=== PATIENT | female | born 1985 | race African-American/Black ===

== ENCOUNTER 2017-04-14 20:32 | Emergency (ER) | payer SELFPAY ==
[~2017-04-14] VITALS: Ht 175.3 cm; Wt 111.1 kg
[~2017-04-14 20:32] MED LIST: CYCLOBENZAPRINE10 MG ORAL; IBUPROFEN600 MG ORAL; LEVAQUIN500 MG ORAL; NKM
[2017-04-14 20:49] VITALS: BP 132/81
[2017-04-14] MEDS ORDERED: IBUPROFEN600 MG ORAL (21:21)
--- NOTE | 2017-04-14 21:21 | Emergency Room Report ---
History of Present Illness General Chief Complaint: Pain Source: Patient Present Illness HPI A 31-year-old female with no cerebrovascular issue. She presents with left foot pain. Onset for a week now. No trauma. Worse with standing or walking. No fever chills but no nausea no vomiting. Now felt some numbness. Denies any other complaint. Pain is mild. Allergies: Coded Allergies: No Known Allergies (Unverified , 12/14/14) Patient History Past Medical History: see triage record, old chart reviewed Past Surgical History: none Pertinent Family History: none Social History: Denies: smoking Last Menstrual Period: 04/11/17 Now: No Immunizations: other Reviewed Nursing Documentation: PMH: Agreed, PSxH: Agreed Nursing Documentation-PMH Past Medical History: No Stated History Review of Systems Eye: Denies: eye pain, blurred vision ENT: Denies: ear pain, nose congestion, throat swelling Respiratory: Denies: cough, shortness of breath Cardiovascular: Denies: chest pain, palpitations Gastrointestinal: Denies: abdominal pain, diarrhea, nausea, vomiting Musculoskeletal: Reports: joint pain, Denies: back pain Skin: Denies: rash Neurological: Denies: headache, numbness Endocrine: Denies: increased thirst, increased urine Hematologic/Lymphatic: Denies: easy bruising All Other Systems: negative except mentioned in HPI Physical Exam Vital Signs Date Time Temp Pulse Resp B/P (MAP) Pulse Ox O2 Delivery O2 Flow Rate FiO2 04/14/17 20:41 98.1 88 17 132/81 98 Room Air vitals normal Sp02 EP Interpretation: reviewed, normal General Appearance: well appearing, no apparent distress, alert Head: normocephalic, atraumatic Eyes: bilateral eye PERRL, bilateral eye EOMI ENT: hearing grossly normal, normal pharynx Neck: full range of motion, supple, no meningismus Respiratory: chest non-tender, lungs clear, normal breath sounds Cardiovascular #1: regular rate, rhythm, no murmur Gastrointestinal: normal bowel sounds, non tender, no mass, no organomegaly, no bruit, non-distended Musculoskeletal: back normal, gait/station normal, normal range of motion, other - Left foot: Tenderness on the dorsum of the foot. Mild edema. No redness. No fever. Full range of motion of the ankle. Dorsalis pedis pulses 2 +. Sensation normal. She is very flat-footed. Psychiatric: mood/affect normal Skin: warm/dry Medical Decision Making Diagnostic Impression: Primary Impression: Sprain of foot, left Qualified Codes: S93.602A - Unspecified sprain of left foot, initial encounter ER Course Patient presents with left foot pain. Probably a sprain because she still flat- footed. No fracture or dislocation. No evidence of infection. We'll discharge home. Other X-Ray Diagnostic Results Other X-Ray Diagnostic Results : X-Ray ordered: X-rays left foot # of Views/Limited Vs Complete: 3 View Indication: Pain EP Interpretation: Yes Interpretation: no dislocation, no soft tissue swelling, no fractures Impression: No acute disease Interpreting ER Provider: Electronically signed by Parviz Guerrero MD Last Vital Signs Date Time Temp Pulse Resp B/P (MAP) Pulse Ox O2 Delivery O2 Flow Rate FiO2 04/14/17 20:49 98.1 88 17 132/81 98 Room Air Status: improved Disposition: HOME, SELF-CARE Condition: Stable Scripts Ibuprofen* (MOTRIN*) 600 Mg Tablet 600 MG ORAL THREE TIMES A DAY, #30 TAB 0 Refills Prov: PARVIZ GUERRERO M.D. 04/14/17 Additional Instructions: Followup with your DrPaddy 7 days. You may benefit from referral to see a knot cutter for orthotic shoes. Return if symptom worsen. PARVIZ GUERRERO M.D. Apr 14, 2017 21:21
[2017-04-14 21:44] VITALS: BP 132/81
--- NOTE | 2017-04-15 08:46 | Diagnostic Imaging Report ---
Indication: Pain Comparison: None Findings: 3 views of the left foot were obtained. No acute fractures, malalignment, erosions or periostitis are identified. Bone mineralization is within normal limits. Nonspecific soft tissue swelling is present. Impression: No acute findings. Soft tissue swelling
== END 2017-04-14 21:45 | disposition home or self-care (01) ==
LOC: EMR 21:06
DX: S93.602A Unspecified sprain of left foot, initial encounter (principal); X58.XXXA Exposure to other specified factors, initial encounter; Y93.9 Activity, unspecified; Y92.9 Unspecified place or not applicable
CPT/HCPCS: 99283

== ENCOUNTER 2017-12-16 00:47 | Emergency (ER) | payer SELFPAY ==
[~2017-12-16] VITALS: Ht 175.3 cm; Wt 109.8 kg
[2017-12-16] MEDS ORDERED: PRILOSEC OTC20 MG ORAL (00:55)
[2017-12-16] MEDS ORDERED: Lidocaine 2% Visc 15ml soln ORAL ONE (01:00)
--- NOTE | 2017-12-16 01:04 | Emergency Room Report ---
History of Present Illness General Chief Complaint: Chest Pain Source: Patient Present Illness HPI Patient 32-year-old female presented after increased chest discomfort. Patient reports having onset of pain after drinking alcohol. Patient reports having some discomfort. She denies any change with exertion. She denies family history of cardiac disease. She does not take oral contraceptives. She denies being . She denies any leg pain or swelling.She denies cough or shortness of breath. Allergies: Coded Allergies: No Known Allergies (Unverified , 12/14/14) Patient History Past Medical History: see triage record Last Menstrual Period: november 22 2017 Now: No Reviewed Nursing Documentation: PMH: Agreed; PSxH: Agreed Nursing Documentation-PMH Past Medical History: No Stated History Review of Systems All Other Systems: negative except mentioned in HPI Physical Exam Vital Signs Date Time Temp Pulse Resp B/P (MAP) Pulse Ox O2 Delivery O2 Flow Rate FiO2 12/16/17 00:57 97.9 72 23 117/60 97.9 Sp02 EP Interpretation: reviewed, normal General Appearance: normal inspection, well appearing, no apparent distress, alert, GCS 15, obese Head: atraumatic ENT: normal ENT inspection, hearing grossly normal, normal voice Neck: normal inspection, full range of motion, supple, no bony tend Respiratory: normal inspection, lungs clear, normal breath sounds, no respiratory distress, no retraction, no wheezing Cardiovascular #1: regular rate, rhythm, no edema Gastrointestinal: normal inspection, normal bowel sounds, non tender, soft, no guarding, no hernia, other - mild epigastric tenderness Genitourinary: no CVA tenderness Musculoskeletal: normal inspection, back normal, normal range of motion Neurologic: normal inspection, alert, oriented x3, responsive, speech normal Psychiatric: normal inspection, judgement/insight normal, mood/affect normal Skin: normal inspection, normal color, no rash Medical Decision Making Diagnostic Impression: Primary Impression: Gastritis ER Course Patient presented for abdominal pain. Differential diagnoses included ischemic bowel, appendicitis, perforated viscus, abdominal aortic aneurysm, inferior myocardial infarction, viral gastroenteritis. Patient has a benign exam and does not appear to require any further imaging or laboratory testing at this time. EKG interpreted by me showed normal sinus rhythm with a rate of [address] or T wave changes. Patient was noted to have a benign exam and minimal tenderness to the epigastric area. The patient had not been having any hematemesis or bleeding episodes. The patient was given a GI cocktail with improvement. The patient is advised to follow up with primary care doctor in 1 -2 days. Patient is advised to return if any worsening condition or if any changes in status that are concerning. This report is dictated with [employer] hatchery laborer software which may occasionally lead to discrepancies related to use of this software. Chest X-Ray Diagnostic Results Chest X-Ray Diagnostic Results : Chest X-Ray Ordered: Yes # of Views/Limited/Complete: 1 View Indication: Chest Pain EP Interpretation: Yes Impression: No acute disease Electronically Signed by: Electronically signed by Dr. Antione Cox M.D. Last Vital Signs Date Time Temp Pulse Resp B/P (MAP) Pulse Ox O2 Delivery O2 Flow Rate FiO2 12/16/17 00:57 97.9 72 23 117/60 97.9 Status: improved Disposition: HOME, SELF-CARE Condition: Stable Scripts Omeprazole Magnesium (PRILOSEC OTC) 20 Mg Tablet. 20 MG ORAL DAILY, #14 TAB Prov: Antione Cox 12/16/17 Patient Instructions: Gastroesophageal Reflux Disease, Adult Antione Cox Dec 16, 2017 01:04
[2017-12-16 01:15] VITALS: BP 124/57
[2017-12-16 01:28] VITALS: BP 126/68
[2017-12-16 01:31] VITALS: BP 126/68
--- NOTE | 2017-12-16 11:08 | Diagnostic Imaging Report ---
Indication: Dyspnea Comparison: None A single view chest radiograph was obtained. Findings: Cardiomediastinal appearance is within normal limits for age. Pulmonary vascularity is appropriate. The diaphragmatic contour is smooth and costophrenic angles are sharp. No pleural effusions are identified. The bones are unremarkable. Impression: No acute findings
== END 2017-12-16 01:31 | disposition home or self-care (01) ==
LOC: EMR 01:03
DX: K29.70 Gastritis, unspecified, without bleeding (principal)
CPT/HCPCS: 71045; 93005; 99283

== ENCOUNTER 2018-12-12 14:10 | Emergency (ER) | payer SELFPAY ==
[~2018-12-12] VITALS: Ht 175.3 cm; Wt 104.3 kg
[~2018-12-12 14:10] MED LIST changes: +PRILOSEC OTC20 MG ORAL
[2018-12-12] MEDS ORDERED: NKM (14:22)
--- NOTE | 2018-12-12 14:24 | NUR ---
ED Nurse Note: Pt came into the ER w/ complaints of right toe swelling an dpain x 1 week. According to pt, it started after she got a pedicure a week ago. Pt states that white discharge occurs intermittently. Pt is ccomplaining of 9/10 pain in the area. Non radiating. Pt is A + O x4. Ambulatory. Skin warm to touch.
--- NOTE | 2018-12-12 15:04 | Emergency Room Report ---
History of Present Illness General Chief Complaint: Lower Extremity Injury Source: Patient Present Illness HPI 33 presents to the ED c/o pain, swelling, and erythema of the right great Toe progressive x 2 days. denies fevers or chills. onset after having pedicure done at a nail salon. denies hx of immune compromise, denies trauma or fall. pain worse with palpation and ambulation. some mild relief when wearing open toe shoes. Allergies: Coded Allergies: ACETAMINOPHEN (Verified Allergy, Unknown, 12/12/18) HYDROCODONE (Verified Allergy, Unknown, 12/12/18) Patient History Past Medical History: see triage record Past Surgical History: none Pertinent Family History: none Last Menstrual Period: 11/29/18 Now: No Reviewed Nursing Documentation: PMH: Agreed; PSxH: Agreed Nursing Documentation-PMH Past Medical History: No Stated History Review of Systems All Other Systems: negative except mentioned in HPI Physical Exam Vital Signs Date Time Temp Pulse Resp B/P (MAP) Pulse Ox O2 Delivery O2 Flow Rate FiO2 12/12/18 14:19 99.1 78 16 100/67 98 Room Air Sp02 EP Interpretation: reviewed, normal General Appearance: alert, GCS 15, non-toxic, mild distress Head: normocephalic, atraumatic Eyes: bilateral eye normal inspection, bilateral eye PERRL ENT: hearing grossly normal, normal voice Neck: full range of motion Respiratory: lungs clear, normal breath sounds, speaking full sentences Cardiovascular #1: regular rate, rhythm, normal capillary refill Gastrointestinal: soft Musculoskeletal: back normal, gait/station normal, normal range of motion, non- tender Neurologic: alert, oriented x3, responsive, motor strength/tone normal, sensory intact, speech normal, grossly normal Psychiatric: judgement/insight normal Skin: no rash, warm/dry, well hydrated, other - paronychia of the right great toe- medial aspect, purulence visible under the medial cuticle line. some d/c noted. Lymphatic: no adenopathy Procedures Incision and Drainage Incision and Drainage : Consent: Verbal Site: right great toe Blade Size: 11 I & D Procedure: betadine prep, sterile drapes applied Wound Location: other - right great toe Wound's Depth, Shape: superficial Wound Length (cm): 1 Wound Explored: contaminated - purulent d/c expressed Splint Applied?: No Sling Applied?: No Patient Tolerated: Well Complications: None Progress cuticle was gently lifted away from the nail using no. 11 scalpe. not under local anesthesia. Medical Decision Making PA Attestation Dr. Issa is my supervising Physician whom patient management has been discussed with. Diagnostic Impression: Primary Impression: Paronychia of great toe, right ER Course 33 presents to the ED c/o pain, swelling, and erythema of the right great Toe progressive x 2 days. denies fevers or chills. onset after having pedicure done at a nail salon. denies hx of immune compromise, denies trauma or fall. pain worse with palpation and ambulation. some mild relief when wearing open toe shoes. Ddx considered but are not limited to cellulitis, paronychia, eponychia, ingrown toe nail, fracture, d/L, gout Vital signs: are WNL, pt. is afebrile H&PE are most consistent with left middle finger paronychia ORDERS: none required at this time, the diagnosis is clinical ED INTERVENTIONS: - verbal consent was received . - lesion was cleaned with Betadine prep. - Cuticle gently lifted away from nail on the right Great toe using a no. 11 blade. to drain the paronychia. pt. tolerated well without complication. - sterile band-aid was then applied afterward. - will d/c pt. with PO abx. DISCHARGE: At this time pt. is stable for d/c to home. Will provide printed patient care instructions, and any necessary prescriptions. Care plan and follow up instructions have been discussed with the patient prior to discharge. Last Vital Signs Date Time Temp Pulse Resp B/P (MAP) Pulse Ox O2 Delivery O2 Flow Rate FiO2 12/12/18 14:19 99.1 78 16 100/67 98 Room Air Status: improved Disposition: HOME, SELF-CARE Condition: Stable Scripts Ibuprofen* (MOTRIN*) 600 Mg Tablet 600 MG ORAL THREE TIMES A DAY, #30 TAB 0 Refills Prov: Nickie Mustafa 12/12/18 Clindamycin Hcl (CLINDAMYCIN HCL) 300 Mg Capsule 300 MG ORAL FOUR TIMES A DAY for 7 Days, #28 CAP Prov: Nickie Mustafa 12/12/18 Departure Forms: Return to Work Return to Work Date: Dec 16, 2018 Work Restrictions: No Prolonged Standing Other Restrictions: NO Standing or walking x 3 days. Return to Full Activity: Dec 16, 2018 Patient Instructions: Jose, [id number] Additional Instructions: Take medications as directed. Follow up with a Primary Care Provider in 3-5 days, even if your symptoms have resolved. --Please review list of primary care clinics, if you do not already have a primary care provider Return sooner to ED if new symptoms occur, or current symptoms become worse. - Please note that this Emergency Department Report was dictated using [employer] belt coverer technology software, occasionally this can lead to erroneous entry secondary to interpretation by the dictation equipment. Nickie Mustafa Dec 12, 2018 15:04
[2018-12-12] MEDS ORDERED: CLINDAMYCIN HC300 MG ORAL (15:06)
[2018-12-12] MEDS ORDERED: IBUPROFEN600 MG ORAL (15:06)
[2018-12-12 15:26] VITALS: BP 103/65
--- NOTE | 2018-12-12 15:27 | NUR ---
ER DISCHARGE NOTE: Patient is cleared to be discharged per ERMD, pt is aox4, on room air, with stable vital signs. pt was given dc and prescription instructions, pt was able to verbalize understanding, pt id band removed without complications. pt is able to ambulate with steady gait. pt took all belongings.
== END 2018-12-12 15:27 | disposition home or self-care (01) ==
LOC: EMR 14:55
DX: L03.031 Cellulitis of right toe (principal); Z88.6 Allergy status to analgesic agent
CPT/HCPCS: 99283

== ENCOUNTER 2019-04-03 13:20 | Emergency (ER) | payer SELFPAY ==
[~2019-04-03] VITALS: Ht 175.3 cm; Wt 104.3 kg
[~2019-04-03 13:20] MED LIST changes: +CLINDAMYCIN HC300 MG ORAL
--- NOTE | 2019-04-03 14:20 | NUR ---
ED Nurse Note: nathan mcleod done pt ambulated to restroom.
--- NOTE | 2019-04-03 14:30 | NUR ---
ED Nurse Note: Urine specimen sent.
[2019-04-03] MEDS: Ketorolac 60mg Inj IM ONE ×2 (14:35→15:02)
[2019-04-03 14:41] LABS: APPEARANCE,URINE CLEAR; BILIRUBIN, URINE NEGATIVE (NEGATIVE); COLOR,URINE PALE YELLOW; GLUCOSE, URINE (UA) NEGATIVE (NEGATIVE); KETONES,URINE NEGATIVE (NEGATIVE); LEUKOCYTE ESTERASE ,URINE 1+ (NEGATIVE); NITRITE,URINE NEGATIVE (NEGATIVE); PH,URINE 6 (4.5-8.0); PROTEIN,URINE NEGATIVE (NEGATIVE); UROBILINOGEN,URINE NORMAL MG/DL (0.0-1.0)
--- NOTE | 2019-04-03 15:04 | Emergency Room Report ---
History of Present Illness General Chief Complaint: Headache Source: Patient Present Illness HPI 33-year-old female with history of migraine headache without aura presents today with new onset of a 1 day of right-sided headache that starts around her marvin-orbital and radiates to her forehead and back of her head. Patient also reports nausea however denies vomiting. Complains of photophobia rating pain 10 out of 10. Denies tingling and numbness. Has taken [id number] ibuprofen with minimal relief. Patient also reports that she may be as her last menstrual period was 1 month ago and she has recently been sexually active. Denies any vaginal discharge, urinary frequency, abdominal pain, chest pain, shortness of breath, palpitation. Denies drug use, tobacco smoke, alcohol intake. Patient is stable. Patient reports that she was diagnosed with migraine headache in the past however has not been seen by a neurologist. Denies head injury. Denies loss of consciousness, dizziness. Denies recent URI symptoms Allergies: Coded Allergies: ACETAMINOPHEN (Verified Allergy, Unknown, 12/12/18) HYDROCODONE (Verified Allergy, Unknown, 12/12/18) Patient History Past Medical History: see triage record Past Surgical History: unable to obtain Pertinent Family History: none Last Menstrual Period: february Now: No Immunizations: UTD Reviewed Nursing Documentation: PMH: Agreed; PSxH: Agreed Nursing Documentation-PMH Past Medical History: No Stated History Review of Systems All Other Systems: negative except mentioned in HPI Physical Exam Vital Signs Date Time Temp Pulse Resp B/P (MAP) Pulse Ox O2 Delivery O2 Flow Rate FiO2 04/03/19 13:27 98.2 78 16 111/74 (86) 98 Room Air Sp02 EP Interpretation: reviewed, normal General Appearance: no apparent distress, alert, GCS 15, non-toxic Head: normocephalic, atraumatic Eyes: bilateral eye normal inspection, bilateral eye PERRL ENT: hearing grossly normal, normal pharynx, no angioedema, normal voice Neck: full range of motion, supple/symm/no masses Respiratory: chest non-tender, lungs clear, normal breath sounds, speaking full sentences Cardiovascular #1: regular rate, rhythm, no edema Gastrointestinal: normal bowel sounds, non tender, soft, non-distended, no guarding, no rebound Genitourinary: normal inspection, no CVA tenderness Musculoskeletal: back normal, gait/station normal, normal range of motion, non- tender Neurologic: alert, oriented x3, responsive, motor strength/tone normal, sensory intact, speech normal Psychiatric: judgement/insight normal, memory normal, mood/affect normal, no suicidal/homicidal ideation Skin: no rash Lymphatic: no adenopathy Medical Decision Making PA Attestation All my diagnosis and treatment plans were reviewed ad discussed with my supervising physician Dr. Alcaraz Diagnostic Impression: Primary Impression: Migraine headache ER Course 33-year-old female with history of migraine headache without aura presents today with new onset of a 1 day of right-sided headache that starts around her marvin-orbital and radiates to her forehead and back of her head. Patient also reports nausea however denies vomiting. Complains of photophobia rating pain 10 out of 10. Denies tingling and numbness. Has taken [id number] ibuprofen with minimal relief. Patient also reports that she may be as her last menstrual period was 1 month ago and she has recently been sexually active. Denies any vaginal discharge, urinary frequency, abdominal pain, chest pain, shortness of breath, palpitation. Denies drug use, tobacco smoke, alcohol intake. Patient is stable. Patient reports that she was diagnosed with migraine headache in the past however has not been seen by a neurologist. Denies head injury. Denies loss of consciousness, dizziness. Denies recent URI symptoms. Ddx considered but are not limited to: Tension headache, migraine headache without aura, migraine headache with aura, Vital signs: are WNL, pt. is afebrile H&PE are most consistent with: Migraine headache without aura ORDERS: UA, urine , sumatriptan, ibuprofen, Zofran ED INTERVENTIONS: Toradol DISCHARGE: At this time pt. is stable for d/c to home. Will provide printed patient care instructions, and any necessary prescriptions. Care plan and follow up instructions have been discussed with the patient prior to discharge. Patient to follow-up with primary care provider for referral to neurologist take medication as directed avoid drinking alcohol or drug use if worsening symptoms return to the emergency room. Last Vital Signs Date Time Temp Pulse Resp B/P (MAP) Pulse Ox O2 Delivery O2 Flow Rate FiO2 04/03/19 13:27 98.2 78 16 111/74 (86) 98 Room Air Disposition: HOME, SELF-CARE Condition: Stable Scripts Ondansetron (Zofran) 4 Mg Tablet 4 MG ORAL Q6H PRN for Nausea & Vomiting, #10 TAB Prov: Deondre Carroll 04/03/19 Ibuprofen (Ibu) 800 Mg Tablet 800 MG PO TID, #30 TAB Prov: Deondre Carroll 04/03/19 Sumatriptan Succinate (SUMATRIPTAN SUCCINATE) 25 Mg Tablet 25 MG PO DAILY for 5 Days, #5 TAB Prov: Deondre Carroll 04/03/19 Referrals: NOT CHOSEN IPA/MD,REFERRING (PCP) Patient Instructions: Migraine Headache Additional Instructions: Take medication as directed follow-up with your primary care provider for management of migraine headache and also referral to neurologist. If worsening symptoms return to the emergency room Deondre Carroll Apr 03, 2019 15:04
[2019-04-03] MEDS ORDERED: IBU800 MG PO (15:07)
[2019-04-03] MEDS ORDERED: ZOFRAN4 M1 ORAL (15:07)
[2019-04-03] MEDS ORDERED: SUMATRIPTAN SUC25 MG PO (15:07)
--- NOTE | 2019-04-03 15:28 | NUR ---
ER DISCHARGE NOTE: Patient is cleared to be discharged per ERMD, pt is aox4, on room air, with stable vital signs. pt was given dc and prescription instructions, pt was able to verbalize understanding, pt id band and removed without complications. pt is able to ambulate with steady gait. pt took all belongings.
[2019-04-03 16:15] VITALS: BP 110/75
== END 2019-04-03 15:28 | disposition home or self-care (01) ==
LOC: EMR 15:00
DX: G43.909 Migraine, unspecified, not intractable, without status migrainosus (principal); Z88.6 Allergy status to analgesic agent; R11.0 Nausea
CPT/HCPCS: 81001; 81025; 96372; 99283

== ENCOUNTER 2019-06-25 02:40 | Emergency (ER) | payer SELFPAY ==
[~2019-06-25] VITALS: Ht 175.3 cm; Wt 99.8 kg
[~2019-06-25 02:40] MED LIST changes: +IBU800 MG PO; +SUMATRIPTAN SUC25 MG PO; +ZOFRAN4 M1 ORAL
[2019-06-25 02:55] VITALS: BP 128/78
--- NOTE | 2019-06-25 02:55 | NUR ---
WALK-IN PATIENT WITH COMPLAINTS OF RIGHT ARM NECK AND SHOULDER PAIN SINCE 2 PM YESTERDAY. VSS. Pt denies injury, tingling and numbness
[2019-06-25] MEDS ORDERED: NAPROXEN250 MG ORAL (02:58)
[2019-06-25] MEDS ORDERED: LIDODERM700 M1 TOPIC (02:58)
--- NOTE | 2019-06-25 02:59 | Emergency Room Report ---
History of Present Illness General Chief Complaint: Upper Extremity Injury Source: Patient Present Illness HPI 34-year-old female presents with right shoulder pain after pushing a gate open, she thinks she strained her shoulder, her shoulder hurts when she moves it around, alleviated with rest, severity is mild, intermittent, patient presents for evaluation also requesting a work note. Allergies: Coded Allergies: ACETAMINOPHEN (Verified Allergy, Unknown, 12/12/18) HYDROCODONE (Verified Allergy, Unknown, 12/12/18) Patient History Past Medical History: see triage record Last Menstrual Period: 06/04/19 Now: No Reviewed Nursing Documentation: PMH: Agreed; PSxH: Agreed Nursing Documentation-PMH Past Medical History: No Stated History Review of Systems All Other Systems: negative except mentioned in HPI Physical Exam Vital Signs Date Time Temp Pulse Resp B/P (MAP) Pulse Ox O2 Delivery O2 Flow Rate FiO2 06/25/19 02:42 98.2 74 16 128/78 (95) 96 Room Air General Appearance: well appearing, no apparent distress Head: normocephalic, atraumatic ENT: hearing grossly normal, normal voice Neck: full range of motion, supple Respiratory: no respiratory distress, speaking full sentences Musculoskeletal: other - Right shoulder tender to palpation, empty can test positive, radial median ulnar nerve intact 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 Neurologic: alert, normal gait Psychiatric: mood/affect normal Skin: no rash Medical Decision Making Diagnostic Impression: Primary Impression: Right shoulder strain Qualified Codes: S46.911A - Strain of unspecified muscle, fascia and tendon at shoulder and upper arm level, right arm, initial encounter ER Course 34-year-old female presents with most likely a right shoulder strain, lidocaine patch, disposition home with return precautions follow-up with PCP Last Vital Signs Date Time Temp Pulse Resp B/P (MAP) Pulse Ox O2 Delivery O2 Flow Rate FiO2 06/25/19 02:42 98.2 74 16 128/78 (95) 96 Room Air Disposition: HOME, SELF-CARE Condition: Stable Scripts Lidocaine Patch* (Lidoderm Patch*) 1 Each Adh..patch 1 PATCH TOPIC DAILY, #7 PATCH 0 Refills Patch(es) may remain in place for up to 12 hours in any 24-hour period. Prov: Daryl Sethi MD 06/25/19 Naproxen* (NAPROSYN*) 250 Mg Tablet 250 MG ORAL BID PRN for For Pain, #20 TAB 0 Refills Prov: aDryl Sethi MD 06/25/19 Referrals: [facility] Departure Forms: Return to Work Return to Work Date: Jun 28, 2019 Patient Instructions: Shoulder Pain, [id number], Shoulder Sprain Additional Instructions: The patient was provided with discharge instructions, notified to follow-up with a primary care doctor and or specialist in the next 24-48 hours, and to return to the ED if they have worsening of their symptoms. Please note that this report is being documented using [employer] technology. This can lead to erroneous entry secondary to incorrect interpretation by the dictating instrument. Daryl Sethi MD Jun 25, 2019 02:59
[2019-06-25 03:15] VITALS: BP 128/78
--- NOTE | 2019-06-25 03:15 | NUR ---
ER DISCHARGE NOTE: Patient is cleared to be discharged per ERMD, pt is aox4, on room air, with stable vital signs. pt was given dc and prescription instructions, pt was able to verbalize understanding, pt id band removed. pt is able to ambulate with steady gait. pt took all belongings.
== END 2019-06-25 04:15 | disposition home or self-care (01) ==
LOC: EMR 03:15
DX: S46.911A Strain of unspecified muscle, fascia and tendon at shoulder and upper arm level, right arm, initial encounter (principal); X50.9XXA Other and unspecified overexertion or strenuous movements or postures, initial encounter; Y92.9 Unspecified place or not applicable; Z88.6 Allergy status to analgesic agent
CPT/HCPCS: 81025; 99282